=== PATIENT | male | born 1945 | race African-American/Black ===

== ENCOUNTER 2018-12-13 22:45 | Inpatient (IN) | payer MEDICAID, MEDICARE, OTHER ==
[~2018-12-13] VITALS: Ht 175.3 cm; Wt 73.9 kg
--- NOTE | 2018-12-13 22:58 | NUR ---
DR MUELLER AT BEDSIDE FOR MSE.
[2018-12-13 23:19] LABS: BASOPHILS % (AUTO) 0.5 % (0.0-2.0); EOSINOPHILS # (AUTO) 0.1 K/uL (0.0-0.7); EOSINOPHILS % (AUTO) 1.9 % (0.0-7.0); HEMATOCRIT 47.1 % (36.7-47.1); HEMOGLOBIN 15.5 g/dL (12.5-16.3); LYMPHOCYTES # (AUTO) 1.5 K/uL (20.0-40.0); LYMPHOCYTES % (AUTO) 30.4 % (20.5-51.5); MEAN CORPUSCULAR HEMOGLOBIN 29.5 uug (23.8-33.4); MEAN CORPUSCULAR HGB CONC 33 g/dL (32.5-36.3); MEAN CORPUSCULAR VOLUME 89.5 fL (73.0-96.2); MONOCYTES # (AUTO) 0.4 K/uL (2.0-10.0); MONOCYTES % (AUTO) 9.1 % (0.0-11.0); NEUTROPHILS # (AUTO) 2.8 K/uL (1.8-8.9); NEUTROPHILS % (AUTO) 58.1 % (38.5-71.5); PLATELET COUNT (AUTO) 215 K/uL (152-348); RED BLOOD CELL COUNT(AUTO) 5.26 MIL/uL (4.06-5.63); WHITE BLOOD COUNT (AUTO) 4.9 K/uL (3.6-10.2)
[2018-12-13 23:54] LABS: ETHANOL < 3 MG/DL (0-0)
[2018-12-13 23:57] LABS: CARBON DIOXIDE 28 mmol/L (21-32); CHLORIDE 107 mmol/L (98-107); CREATININE 0.8 mg/dL (0.6-1.3); GLUCOSE 91 mg/dL (74-106); POTASSIUM 3.8 mmol/L (3.5-5.1); UREA NITROGEN, BLOOD 23 mg/dL (7-18)
[2018-12-14 00:11] LABS: ALANINE AMINOTRANSFERASE 98 U/L (16-63); ALKALINE PHOSPHATASE 73 U/L (50-136); ASPARTATE AMINOTRANSFERASE 67 U/L (15-37); BILIRUBIN,DIRECT 0.1 mg/dL (0.0-0.2); BILIRUBIN,TOTAL 0.4 mg/dL (0.2-1.0); TOTAL PROTEIN, SERUM 7.2 g/dL (6.4-8.2)
[2018-12-14 00:12] LABS: ACETAMINOPHEN < 2.0 ug/mL (10-30)
--- NOTE | 2018-12-14 00:46 | NUR ---
REPORT GIVEN TO SARA MCCLENDON.
--- NOTE | 2018-12-14 00:46 | NUR ---
Pt. admitted to [facility] , under care of Dr. LUNA/SHERIE. Belongs List completed. No acute distress noted.
[2018-12-14 01:18] VITALS: BP 142/78
[2018-12-14] MEDS ORDERED: TEMAZEPAM 7.5 MG CAPSULE PO PRN (01:45)
[2018-12-14] MEDS ORDERED: MAG HYDROX/AL HYDROX/SIMETH 30 ML LIQUID UDC PO PRN (01:45)
[2018-12-14] MEDS ORDERED: MAGNESIUM HYDROXIDE 30 ML LIQUID UDC PO PRN (01:45)
[2018-12-14] MEDS ORDERED: CLONAZEPAM 0.5 MG TABLET PO PRN (01:45)
[2018-12-14] MEDS ORDERED: ACETAMINOPHEN 325 MG TABLET PO PRN (01:45)
--- NOTE | 2018-12-14 02:20 | NUR ---
Patient received in wheelchair. a/ox3. no signs of acute distress and v/s stable throughout shift. no suicidal ideations at this time. cooperative and compliant with admissions process. ID band on. No IV site. belongings list completed. will endorse care to morning nurse. Addendum: 12/14/18 at 0636 by HAKAN HINOJOSA RN correction: no signs of acute distress and v/s stable at this time.
--- NOTE | 2018-12-14 07:40 | NUR ---
Patient resting in bed at this time. Awake, alert/oriented x3. Patient understands why he is here in the hospital and why he is on a 5150 hold. All of patient's belongings in contraband locker. 1:1 sitter at bedside for safety. No signs of agitation, aggression. Behaviorally stable. Will continue to monitor throughout shift.
[2018-12-14 07:41] VITALS: BP 131/81
[2018-12-14 09:52] LABS: *BILIRUBIN,URIN NEGATIVE (NEGATIVE); *BLOOD, URINE NEGATIVE (NEGATIVE); *CLARITY,URINE CLEAR (CLEAR); *COLOR,URINE YELLOW (YELLOW); *KETONES,URINE NEGATIVE (NEGATIVE); *UROBILINOGEN,URINE 0.2 E.U./dl (NORMAL); LEUKOCYTE ESTERASE ,URINE NEGATIVE (NEGATIVE); NITRITE, URINE NEGATIVE (NEGATIVE); PH,URINE 5.5 (5.0-8.0); UGLUCOSE NEGATIVE (NEGATIVE)
--- NOTE | 2018-12-14 12:19 | NUR ---
report given to SARA Pope.
[2018-12-14 12:25] VITALS: BP 130/80
[2018-12-14 15:52] VITALS: BP 132/81
--- NOTE | 2018-12-14 17:29 | NUR ---
Pt. resting in bed alert oriented x4. Medical doctor Juliana and Psych doctor Steven consulted with pt. Pt. on 14 day hold. Pt calm and cooperative. pt. compliant with plan of care. Safety measures in place. 1:1 sitter at bedside. Will continue to monitor pt.
--- NOTE | 2018-12-14 18:34 | NUR ---
Pt. compliant with plan of care. 1:1 sitter at bed side. Safety measures in place. Will endorse to PM nurse
[2018-12-14 20:08] VITALS: BP 139/70
[2018-12-14] MEDS ORDERED: OLANZAPINE ZYDIS 5 MG TAB.RAPDIS PO SCH (21:00)
--- NOTE | 2018-12-15 05:25 | NUR ---
patient received lying in bed. no signs of suicidal ideation throughout shift. compliant with medication administration, tolerated well. safety and comfort measures provided at all times. 1:1 sitter at bedside for safety. patient slept 6 hours. will continue plan of care and endorse to morning shift.
[2018-12-15 08:00] VITALS: BP 136/90
[2018-12-15] MEDS: OLANZAPINE ZYDIS 5 MG TAB.RAPDIS PO SCH ×2 (10:05→16:15)
--- NOTE | 2018-12-15 11:01 | NUR ---
Pt. requested to use phone for an hour for Sunday jehovah's witness service. Charge nurse aware. Instructed pt. and sitter pt. is only allowed to watch Sunday Restorationism Service. pt. agreed.
[2018-12-15] MEDS ORDERED: INFLUENZA VACCINE 2019-2020 0.5 ML DISP.SYRIN IM ONE (14:00)
[2018-12-15] MEDS ORDERED: PNEUMOCOCCAL 23-VAL P-SAC VAC 0.5 ML VIAL IM ONE (14:00)
[2018-12-15 16:00] VITALS: BP 121/75
--- NOTE | 2018-12-15 17:57 | NUR ---
Pt. compliant with plan of care. Pt. took all medications. Pt. denies pain or discomfort. Pt. denies SOB/ difficulty breathing. Pt. denies SI/ HI. Safety measures in place. 1:1 sitter at bedside. Safety measures in place.
[2018-12-15 20:01] VITALS: BP 139/72
--- NOTE | 2018-12-15 20:03 | NUR ---
Patient received into care, resting comfortably in bed, with 1:1 sitter at side. Patient is alert/oriented x3 and has no complaints of pain or discomfort at this time. All safety and fall precaution measures are in place. Will continue to monitor throughout shift.
[2018-12-16 04:21] VITALS: BP 122/62
--- NOTE | 2018-12-16 06:00 | NUR ---
Patient slept approximately 20 minutes this shift with 1:1 sitter at side. Nurse offered patient sleeping medication at 0100h but patient refused. Patient was compliant with care and was easily redirected when behavior required to be addressed. All safety and fall precaution measures remain in place.
[2018-12-16 08:00] VITALS: BP 137/84
[2018-12-16] MEDS: OLANZAPINE ZYDIS 5 MG TAB.RAPDIS PO SCH ×2 (09:37→17:20)
--- NOTE | 2018-12-16 15:49 | NUR ---
Initial Discharge Note: Patient is a 73 year old male who currently resides at home alone [[id number], [address] [facility], [place] [address]; [phone]]. Per patient, he would like to return home once ready. Warehouse Picker contacted and left vmail for patient's lead case manager - Julita Solomon [[phone]]to gain better insight on the patient's living situation. fisheries enforcement officer will continue to meet with patient, and collaborate with patient and MD on a safe and proper discharge plan.
[2018-12-16 16:00] VITALS: BP 137/82
--- NOTE | 2018-12-16 19:20 | NUR ---
RECEIVED PT AWAKE, ALERT AND ORIENTEDX3. PT PLEASANT WHEN APPROACHED. SITTER AT BEDSIDE. PT SHOWS NO SIGNS OF ACUTE DISTRESS. SAFETY AND COMFORT PROVIDED. WILL CONTINUE TO MONITOR.
--- NOTE | 2018-12-17 06:34 | NUR ---
PT SLEPT 4 HOURS. PT SHOWS NO SIGNS OF ACUTE DISTRESS. IV INTACT. PT REFUSED TO TAKE ANY PRN MEDICATIONS. PT KEEP ON TALKING WITH QUICK CHANGE OF THOUGHTS. PT WANTS HIS CELLPHONE. SAFETY AND COMFORT PROVIDED. WILL ENDORSE TO INCOMING NURSE FOR CONTINUITY OF CARE.
[2018-12-17 08:00] VITALS: BP 114/55
[2018-12-17] MEDS: OLANZAPINE ZYDIS 5 MG TAB.RAPDIS PO SCH ×2 (08:40→17:05)
[2018-12-17 16:00] VITALS: BP 130/85
--- NOTE | 2018-12-17 18:37 | NUR ---
Patient resting in bed comfortably at this time. Cooperative with care and medication. Patient AAOx3. Patient has flight of ideas and rambles continuously. Denies SI/HI. 1:1 sitter at bedside for safety . Safety measures implemented. All needs met. Will endorse to shift leader nurse accordingly.
[2018-12-17 19:54] VITALS: BP 146/76
--- NOTE | 2018-12-18 06:53 | NUR ---
patient received lying in bed with 1:1 sitter at bedside for legal hold and safety. safety and comfort measures provided at all times. no signs of acute distress and v/s stable. patient only slept 3 hours. refuses all PRN medications prescribed to patient. becomes angry and agitated when asked if patient would like medication to help him sleep as well as other PRN medications on file. will continue plan of care and endorse care accordingly.
[2018-12-18] MEDS: OLANZAPINE ZYDIS 5 MG TAB.RAPDIS PO SCH ×2 (08:07→20:43)
[2018-12-18 09:00] VITALS: BP 132/65
--- NOTE | 2018-12-18 11:39 | NUR ---
UR Note: Industrial Accountant faxed clinical information to assigned Avionics Systems Engineer Yesica at [facility] managed by [employer] (Phone: ; ). SW awaiting call for authorization.
--- NOTE | 2018-12-18 11:49 | NUR ---
Social Work Note: germination worker spoke with patient's engineering program manager - Julita Solomon. Per Julita, patient has been living on his own for approx 1 year in a housing subsidy from [employer] "Housing for Help" program, paying about $200/month for rent, and has been a good tenant for most of the year up until now. Per Julita, patient claims he has a wealthy family but no family or friend has made contact with patient. Patient had been quite isolative this year until he had a manic episode and began making more friends. Per Julita, patient has adamantly refused mental health services provided by the "Housing for Help" program. Per Julita, patient often obsesses with female celebrities and has depleted his funds in the last weeks. According to Julita, patient will be able to return to his apartment subsidy if he agrees to follow up with mental health treatment on an outpatient basis. Studio Artist to visit patient today.
[2018-12-18 14:00] VITALS: BP 124/62
[2018-12-18 19:30] VITALS: BP 135/61
--- NOTE | 2018-12-19 05:56 | NUR ---
patient received lying in bed. no signs of acute distress and v/s stable. compliant with medications. safety and comfort measures provided at all times. 1:1 sitter at bedside for legal hold and safety. denies SI/HI at this time. total hours of sleep was 2 hours and 15 minutes. PRN medications refused to help patient with insomnia and anxiety. when offered PRN medications patient continues to get agitated and aggressively refuses to take any PRN medications on file. patient had the same response yesterday night as well. will continue to monitor and endorse care to morning nurse.
[2018-12-19 07:08] VITALS: BP 136/97
[2018-12-19] MEDS: OLANZAPINE ZYDIS 5 MG TAB.RAPDIS PO SCH ×2 (08:12→20:44)
[2018-12-19] MEDS: LITHIUM CARBONATE 300 MG CAPSULE PO SCH ×3 (08:15→16:33)
--- NOTE | 2018-12-19 12:23 | NUR ---
UR NOTE: Per Lily request, [employer] faxed copy of hold to window caser - Yesica [Phone: ; ]
[2018-12-19 19:24] VITALS: BP 134/85
--- NOTE | 2018-12-20 07:07 | NUR ---
PATIENT SLEPT 5 HOUR AND 15MIN TONIGHT. 1:1 SITTER AT BEDSIDE.PATIENT CONTINUES VERY GRANDIOSE BUT COOPERATIVE WITH CARE, HE IS PLEASANT AND BRIGHT. DENIES SUICIDAL IDEATION OR PLAN. WILL . WILL CONTINUE TO MONITOR.
[2018-12-20 07:32] VITALS: BP 131/71
[2018-12-20] MEDS: LITHIUM CARBONATE 300 MG CAPSULE PO SCH ×3 (08:01→16:01)
[2018-12-20] MEDS: OLANZAPINE ZYDIS 5 MG TAB.RAPDIS PO SCH ×2 (08:02→21:44)
--- NOTE | 2018-12-20 12:58 | NUR ---
transfer the pt to u via wheel chair in stable condition
--- NOTE | 2018-12-20 13:19 | NUR ---
PT ARRIVED TO UNIT ON W/C ACCOMPANIED BY PROJECTION ENGINEER. PT HAS BRIGHT AFFECT, GRANDIOSE, QUITE HYPERVERBAL AND MANIC. STATING HE IS INCREDIBLY WEALTHY AND COMES FROM A FAMILY OF MONEY WHERE "MY MOM COULD SPEND 100K/DAY AND NOT RUN OUT OF MONEY." ABLE TO MAKE NEEDS KNOWN.
--- NOTE | 2018-12-20 16:31 | NUR ---
UR NOTE: Alum Plant Operator spoke with Lily Machine Turner Tammi [[phone] Ext [phone]] who confirmed patient is authorized through 12/22/18. Next review scheduled for 12/23/18.
[2018-12-20 16:41] VITALS: BP 120/80
[2018-12-20 20:27] VITALS: BP 143/86
--- NOTE | 2018-12-21 05:56 | NUR ---
gps pt is alert oriented x3 . pt is hyperverbal .ptrefused sleeping last night . bo143/86 .pt had an uneventful night.
[2018-12-21 07:30] VITALS: BP 105/72
[2018-12-21] MEDS: LITHIUM CARBONATE 300 MG CAPSULE PO SCH ×3 (08:03→17:27)
[2018-12-21] MEDS: OLANZAPINE ZYDIS 5 MG TAB.RAPDIS PO SCH ×2 (08:03→20:31)
--- NOTE | 2018-12-21 09:00 | NUR ---
PT IS VERY CALM AND VERY COOPERATIVE. ALERT AND ORIENTED X3. AMBULATORY AND SELF CARE. PT STAYS IN THE DINING AREA AND SOCIALIZING WITH SOME RESIDENTS. CONDITION IS STABLE.
[2018-12-21 15:26] VITALS: BP 124/70
--- NOTE | 2018-12-21 18:00 | NUR ---
NO APPARENT DISTRESS NOTED.
[2018-12-21 20:00] VITALS: BP 111/66
--- NOTE | 2018-12-21 20:00 | NUR ---
RECEIVED PATIENT IN HIS ROOM IN BED. HE IS NOTED A/O X 3, CALM AND PLEASANT UPON APPROACHED. 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 PATIENT WAS REASSURED AND REDIRECTED. HE DENIES SI/HI/VH/AH. HE IS ABLE TO VERBALIZED FEELINGS AND MAKE HIS NEEDS KNOWN. V/S STABLE. PATIENT IS REASSURED FOR HIS SAFETY, SAFETY AND FALL PRECAUTION IN PLACE. WILL CONTINUE TO MONITOR.
[2018-12-22 07:30] VITALS: BP 125/84
[2018-12-22] MEDS: OLANZAPINE ZYDIS 5 MG TAB.RAPDIS PO SCH ×2 (08:12→20:23)
[2018-12-22] MEDS: LITHIUM CARBONATE 300 MG CAPSULE PO SCH ×3 (08:13→16:09)
--- NOTE | 2018-12-22 09:30 | NUR ---
Received pt. in bed, A/OX3. Pleasant and cooperative to nursing staff. Pt. denies SI/HI. Able to make needs known. In no acute distress, RA and tolerating well. Safety and fall precaution in placed. All due medications administered as ordered with no ASE. Will continue to monitor.
[2018-12-22 15:02] VITALS: BP 125/74
--- NOTE | 2018-12-22 18:46 | NUR ---
No significant change during this shift. Pt. compliant with care and all medications. Remain hyperactive and intrusive at times but easily redirectable. Seen by Dr. Ricketts today, aware of [place] [facility]. Will endorse to oncoming shift accordingly.
[2018-12-22 20:10] VITALS: BP 141/75
--- NOTE | 2018-12-23 04:45 | NUR ---
PATIENT NOTED AWAKE, DELUSIONAL. HE STATED, "I NEED THE LIGHT SO I CAN CATCH UP WITH MY WORK. 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 DON'T YOU KNOW, I AM LOSING MONEY BY BEEN HERE. I NEED TO WORK". PATIENT WAS REASSURED AND REDIRECTED. WILL CONTINUE TO MONITOR.
--- NOTE | 2018-12-23 06:52 | NUR ---
pt slept for approx 3.30 hrs through the night. he refused po prn for insomnia. will continue to monitor.
[2018-12-23 07:30] VITALS: BP 126/75
[2018-12-23] MEDS: LITHIUM CARBONATE 300 MG CAPSULE PO SCH ×3 (08:19→16:38)
[2018-12-23] MEDS: OLANZAPINE ZYDIS 5 MG TAB.RAPDIS PO SCH ×2 (08:19→20:18)
--- NOTE | 2018-12-23 15:05 | NUR ---
UR Note: Splicer Operator faxed clinical information to assigned Cafeteria Server Evaristo at [facility] ( [phone]; ). Fax receipt obtained.
[2018-12-23 16:07] VITALS: BP 138/89
[2018-12-23 20:19] VITALS: BP 127/69
[2018-12-24 07:30] VITALS: BP 125/60
--- NOTE | 2018-12-24 07:36 | NUR ---
patient slept for approx 3.0 hrs in the night. po prn medication for insomnia was offered, however, he refused. will continue to monitor.
[2018-12-24] MEDS: LITHIUM CARBONATE 300 MG CAPSULE PO SCH ×3 (08:29→16:17)
[2018-12-24] MEDS: OLANZAPINE ZYDIS 5 MG TAB.RAPDIS PO SCH ×2 (08:31→20:16)
--- NOTE | 2018-12-24 08:45 | NUR ---
FIREARMS REPORT: Clinical Haematologist completed and submitted a [employer] firearms report for 5150 DTS certification. A copy of report has been placed in patient chart.
[2018-12-24 15:14] VITALS: BP 105/72
--- NOTE | 2018-12-24 18:10 | NUR ---
GPS: RECEIVED PATIENT AOX1-2, PATIENT COMPLIANT WITH MEDICATION, DENEIES ANY SI AND HI, PATIENT IN NO DISTRESS TODAY , WILL CONTINUE MONITOR
[2018-12-24 20:00] VITALS: BP 121/69
--- NOTE | 2018-12-24 22:00 | NUR ---
received to care, watching tv with peers, pleasant upon approach. remains grandiose, stating he has "millions of dollars", and is "losing 7,500 dollars a day", while he is here. remains compliant with medications and staff direction. as of 2199, he remains awake, watching tv. no distress noted. will continue to monitor closely.
--- NOTE | 2018-12-25 06:00 | NUR ---
slept 1.5 hours. PRN was offered for sleep, but he declined. remains calm. currently watching tv.
[2018-12-25 07:49] VITALS: BP_SYST 127; BP_SYST 139; BP_DIAS 101; BP_DIAS 109; BP_DIAS 85
[2018-12-25] MEDS: OLANZAPINE ZYDIS 5 MG TAB.RAPDIS PO SCH (08:49)
[2018-12-25] MEDS: LITHIUM CARBONATE 300 MG CAPSULE PO SCH ×2 (08:49→12:01)
--- NOTE | 2018-12-25 10:08 | NUR ---
Discharge Note: Patient will be discharged back home [[id number], [place] [address]; Ph. [phone]] via private transportation provided by patients assistant case manager Julita Solomon at [facility] in [place], [place] [[phone]]. Julita is arranging rideshare transportation for this patient at 1:00pm. Patient is alert and oriented x4, denies any suicidal ideation, and is able to plan for self-care. Patient unable to provide contact information for next of kin to inform of patients discharge plan, except for his assistant case manager Julita Solomon, who is currently aware of patients discharge. Patient is scheduled to follow up with after care appointments: Therapist follow up with Jesus Alaniz, PhD on December 26 at 1:30pm at [address] [place] [id number] [Ph. [phone]] and medication management follow up with Wally Negrete NP on January 24 at 11:00am at same location. Patient was also provided with mental health resources including [facility] Crisis Line [ ] and the National Suicide Prevention Lifeline [ ].
--- NOTE | 2018-12-25 13:22 | NUR ---
DISCHARGE NOTES PATIENT AOX3-4, PATIENT DISCHARGED TO HOME , WITH HOME MEDICATION AND INSTRUCTION GIVEN, PATIENT AMBULATORY AND DENIES SI AND HI, PATIENT REFUSED TO HAVE HIS PICTURE TO BE TAKEN EVEN AFTER EXPLAINING THE BENEFIT OF THE USE OF THE PICTURE, ALL NEEDS MET
== END 2018-12-25 12:45 | disposition home or self-care (01) | DRG 885 ==
LOC: ER 22:49 → GPSOV3 23:25 → UNDOADMIN 23:25 → GPSOV3 12-14 21:00 → GPS 12-20 13:02
PROVIDERS: ADMIT Psychiatry & Neurology Psychiatry
DX: F25.0 Schizoaffective disorder, bipolar type (principal); K40.90 Unilateral inguinal hernia, without obstruction or gangrene, not specified as recurrent; R79.89 Other specified abnormal findings of blood chemistry; R74.0 Nonspecific elevation of levels of transaminase and lactic acid dehydrogenase [LDH]
CPT/HCPCS: 36415; 70030-TC; 71045; 85025; 87086; 90686; 90732; 93005; A4663; G0480; G0480-TC